=== PATIENT | female | born 1960 | race Caucasian/White ===

== ENCOUNTER → 2023-12-25 11:50 | Outpatient (REF) | payer BC, SELFPAY | LOC: HWRAD 11:50 | PROVIDERS: ATTENDING PHYSICIAN Family Medicine | DX: R29.890 Loss of height (principal) | CPT/HCPCS: 77080 ==

== ENCOUNTER → 2024-10-10 12:55 | Outpatient (REF) | payer BC, SELFPAY | LOC: WDC 12:55 | PROVIDERS: ATTENDING PHYSICIAN Obstetrics & Gynecology; FAMILY PHYSICIAN Family Medicine | DX: Z12.31 Encounter for screening mammogram for malignant neoplasm of breast (principal) | CPT/HCPCS: 77063; 77067 ==

== ENCOUNTER 2025-07-31 06:11 | Day surgery (SDC) | payer MEDICARE, BC, SELFPAY | END 2025-07-31 08:41 | disposition home or self-care (01) | LOC: GI 06:11 | PROVIDERS: ATTENDING PHYSICIAN Internal Medicine Gastroenterology | DX: Z12.11 Encounter for screening for malignant neoplasm of colon (principal); Z86.0100 Personal history of colon polyps, unspecified; K64.8 Other hemorrhoids; K57.30 Diverticulosis of large intestine without perforation or abscess without bleeding | CPT/HCPCS: 45380; 88305 ==